=== PATIENT | male | born 1965 | race Caucasian/White ===

== ENCOUNTER 2021-02-04 12:58 | Emergency (ER) | payer SELFPAY ==
[~2021-02-04] VITALS: Ht 188 cm; Wt 136.4 kg
[~2021-02-04 12:58] MED LIST: amoxicillin PO
[2021-02-04 15:16] VITALS: BP 170/107
[2021-02-04] MEDS ORDERED: CEPH250T PO (15:24)
[2021-02-04] MEDS ORDERED: TERB30CR8 TP (15:24)
== END 2021-02-04 15:43 | disposition home or self-care (01) ==
LOC: ER 12:59
DX: B35.3 Tinea pedis (principal); F15.90 Other stimulant use, unspecified, uncomplicated; Z98.890 Other specified postprocedural states; Z79.899 Other long term (current) drug therapy
CPT/HCPCS: 93005; 99283; 99284